=== PATIENT | male | born 1975 | race Two or more races ===

== ENCOUNTER 2017-10-03 21:25 | Emergency (ER) | payer BC, OTHER ==
[~2017-10-03] VITALS: Ht 175.3 cm; Wt 83.9 kg
[2017-10-03 21:35] VITALS: BP 135/86
== END 2017-10-03 22:38 | disposition home or self-care (01) ==
LOC: ER 21:29
DX: J06.9 Acute upper respiratory infection, unspecified (principal); M41.9 Scoliosis, unspecified
CPT/HCPCS: 99281; A4606; Z7610; Z7502

== ENCOUNTER 2018-01-23 09:07 | Outpatient (CLI) | payer BC, OTHER ==
[2018-01-23 09:50] LABS: ALBUMIN 4.1 g/dL (3.4-5.0); BILIRUBIN,TOTAL 0.5 mg/dL (0.2-1.0); CALCIUM, SERUM 9.4 mg/dL (8.5-10.1); CREATININE 1.1 mg/dL (0.6-1.3); POTASSIUM 4.9 mmol/L (3.5-5.1); TOTAL PROTEIN, SERUM 8.5 g/dL (6.4-8.2)
== END 2018-01-23 23:59 | disposition home or self-care (01) ==
LOC: LAB 09:07
DX: E78.5 Hyperlipidemia, unspecified (principal); K21.9 Gastro-esophageal reflux disease without esophagitis
CPT/HCPCS: 36415; 80053-TC; 80061-TC

== ENCOUNTER 2018-09-01 20:21 | Emergency (ER) | payer BC, OTHER ==
[~2018-09-01] VITALS: Ht 175.3 cm; Wt 90.7 kg
--- NOTE | 2018-09-01 20:45 | NUR ---
PT C/O LLQ PAIN X 3 DAYS. -N/V/D, 04/10 PAIN. NONRADIATING, PALPABLE PAIN. PT ON MONITOR IN BED 6. NAD NOTED. WILL CONTINUE TO MONITOR.
[2018-09-01] MEDS ORDERED: HYDROMORPHONE INJ 2 MG/ML DISP.SYRIN IV ONE (21:00)
[2018-09-01] MEDS ORDERED: IV NS 0.9% 1,000 ML BAG IV ONE (21:00)
[2018-09-01] MEDS ORDERED: ONDANSETRON HCL/PF 4 MG/2 ML VIAL IVP ONE (21:00)
[2018-09-01 21:11] LABS: BASOPHILS # (AUTO) 0.1 /CMM (0.0-0.2); BASOPHILS % (AUTO) 0.6 % (0.0-2.0); EOSINOPHILS % (AUTO) 3.7 % (0.0-6.0); HEMATOCRIT 43 % (39-51); HEMOGLOBIN 14.4 g/dL (13.5-17.5); LYMPHOCYTES # (AUTO) 3.1 /CMM (0.8-4.8); LYMPHOCYTES % (AUTO) 26.8 % (20.0-44.0); MEAN CORPUSCULAR HGB CONC 34 g/dl (31.0-36.0); MEAN CORPUSCULAR VOLUME 87 fL (80-96); MONOCYTES # (AUTO) 1.1 /CMM (0.1-1.30); MONOCYTES % (AUTO) 9.3 % (2.0-12.0); NEUTROPHILS # (AUTO) 6.9 /CMM (1.8-8.9); NEUTROPHILS % (AUTO) 59.6 % (43.0-81.0); PLATELET COUNT (AUTO) 284 /CMM (150-450); RED BLOOD CELL COUNT(AUTO) 4.94 MIL/uL (4.5-6.0); WHITE BLOOD COUNT (AUTO) 11.5 K/uL (4.3-11.0)
[2018-09-01] MEDS ORDERED: ONDANSETRON HCL/PF 4 MG/2 ML VIAL ONE (21:13)
[2018-09-01] MEDS ORDERED: HYDROMORPHONE INJ 2 MG/ML DISP.SYRIN ONE (21:14)
[2018-09-01 21:20] LABS: CALCIUM, SERUM 9.5 mg/dL (8.5-10.1); POTASSIUM 3.6 mmol/L (3.5-5.1)
[2018-09-01] MEDS ORDERED: IOHEXOL-300 100 ML VIAL IV ONE (21:23)
[2018-09-01] MEDS ORDERED: IV NS 0.9% 250 ML IV ONE (21:23)
[2018-09-01] MEDS ORDERED: CT SWABBABLE VALVE TRANS SET 1 EA INFUS.SET MC ONE (21:23)
[2018-09-01 21:25] LABS: ALBUMIN 4.1 g/dL (3.4-5.0); BILIRUBIN,DIRECT 0.1 mg/dL (0.0-0.2); BILIRUBIN,TOTAL 0.4 mg/dL (0.2-1.0); TOTAL PROTEIN, SERUM 8.7 g/dL (6.4-8.2)
--- NOTE | 2018-09-01 21:25 | NUR ---
PT TAKEN TO RADIOLOGY FOR CT VIA GOOD
[2018-09-01] MEDS ORDERED: AMOX/CLAVULANATE 875 MG TABLET PO ONE (22:30)
[2018-09-01] MEDS ORDERED: AMOX/CLAVULANATE 875 MG TABLET ONE (22:46)
--- NOTE | 2018-09-01 23:20 | NUR ---
IV removed. Catheter intact and site benign. Pressure and 4x4 applied to site. No bleeding noted.Patient discharged to home in stable condition. Written and verbal after care instructions given. Patient verbalizes understanding of instruction. PT AMBULATORY WITH STEADY GAIT.
[2018-09-01 23:21] VITALS: BP 128/72
== END 2018-09-01 23:22 | disposition home or self-care (01) ==
LOC: ER 20:23
DX: K57.32 Diverticulitis of large intestine without perforation or abscess without bleeding (principal); M41.9 Scoliosis, unspecified
CPT/HCPCS: 36415; 80048-TC; 80076-TC; 83690-TC; 85025-TC; 85730-TC; J1170; J2405; J7030; J7050; Q9967

== ENCOUNTER 2018-11-03 08:27 | Outpatient (CLI) | payer BC ==
[2018-11-03 09:23] LABS: ALBUMIN 4.1 g/dL (3.4-5.0); BILIRUBIN,TOTAL 0.4 mg/dL (0.2-1.0); CALCIUM, SERUM 9.3 mg/dL (8.5-10.1); CREATININE 0.9 mg/dL (0.6-1.3); POTASSIUM 3.8 mmol/L (3.5-5.1); TOTAL PROTEIN, SERUM 8.4 g/dL (6.4-8.2)
== END 2018-11-03 23:59 | disposition home or self-care (01) ==
LOC: LAB 08:27
DX: E78.5 Hyperlipidemia, unspecified (principal); R73.9 Hyperglycemia, unspecified
CPT/HCPCS: 36415; 80053-TC; 80061-TC

== ENCOUNTER 2020-05-15 08:04 | Outpatient (CLI) | payer BC ==
[2020-05-15 08:46] LABS: BASOPHILS # (AUTO) 0.1 /CMM (0.0-0.2); EOSINOPHILS % (AUTO) 11.9 % (0.0-6.0); HEMATOCRIT 42 % (39-51); HEMOGLOBIN 13.8 g/dL (13.5-17.5); LYMPHOCYTES # (AUTO) 2.6 /CMM (0.8-4.8); LYMPHOCYTES % (AUTO) 32.5 % (20.0-44.0); MEAN CORPUSCULAR HGB CONC 33 g/dl (31.0-36.0); MEAN CORPUSCULAR VOLUME 87 fL (80-96); MONOCYTES # (AUTO) 0.8 /CMM (0.1-1.30); MONOCYTES % (AUTO) 9.5 % (2.0-12.0); NEUTROPHILS # (AUTO) 3.6 /CMM (1.8-8.9); NEUTROPHILS % (AUTO) 45.1 % (43.0-81.0); PLATELET COUNT (AUTO) 291 /CMM (150-450)
[2020-05-15 09:23] LABS: ALBUMIN 4.2 g/dL (3.4-5.0); BILIRUBIN,TOTAL 0.6 mg/dL (0.2-1.0); CALCIUM, SERUM 9.1 mg/dL (8.5-10.1); POTASSIUM 3.7 mmol/L (3.5-5.1); TOTAL PROTEIN, SERUM 8.4 g/dL (6.4-8.2)
[2020-05-15 09:28] LABS: APPEARANCE,URINE CLEAR (CLEAR); BILIRUBIN,URINE NEGATIVE (NEGATIVE); BLOOD, URINE NEGATIVE Ery/uL (NEGATIVE); COLOR,URINE YELLOW (YELLOW); KETONES,URINE NEGATIVE (NEGATIVE); LEUKOCYTE ESTERASE ,URINE NEGATIVE (NEGATIVE); NITRITE, URINE NEGATIVE (NEGATIVE); PROTEIN,URINE NEGATIVE (NEGATIVE); UGLUCOSE NEGATIVE (NEGATIVE); UROBILINOGEN,URINE 0.2 EU/dL (0.2)
[2020-05-15 09:35] LABS: PROSTATE SPECIFIC ANTIGEN SCR 0.3 ng/mL (0.00-4.00); THYROID STIMULATING HORMONE 1.515 uIU/mL (0.358-3.74)
== END 2020-05-15 23:59 | disposition home or self-care (01) ==
LOC: LAB 08:04
PROVIDERS: ATTEND Family Medicine
DX: E55.9 Vitamin D deficiency, unspecified (principal); E29.1 Testicular hypofunction; R68.82 Decreased libido; G89.29 Other chronic pain; M54.5 Low back pain; R05 Cough; Q63.1 Lobulated, fused and horseshoe kidney; Z79.899 Other long term (current) drug therapy
CPT/HCPCS: 36415; 71046; 80053-TC; 80061-TC; 81000-TC; 82306; 84153-TC; 84403; 84439-TC; 84443-TC; 85025-TC

== ENCOUNTER 2020-05-18 11:13 | Outpatient (CLI) | payer BC | END 2020-05-18 23:59 | disposition home or self-care (01) | LOC: MRI 11:13 | PROVIDERS: ATTEND Family Medicine | DX: M47.817 Spondylosis without myelopathy or radiculopathy, lumbosacral region (principal); M51.27 Other intervertebral disc displacement, lumbosacral region; M48.07 Spinal stenosis, lumbosacral region; M47.814 Spondylosis without myelopathy or radiculopathy, thoracic region | CPT/HCPCS: 72146-TC; 72148-TC ==

== ENCOUNTER 2022-04-22 10:53 | Outpatient (CLI) | payer BC | END 2022-04-22 23:59 | disposition home or self-care (01) | LOC: MRI 10:53 | PROVIDERS: ATTEND Family Medicine | DX: M47.816 Spondylosis without myelopathy or radiculopathy, lumbar region (principal); M51.27 Other intervertebral disc displacement, lumbosacral region; M48.07 Spinal stenosis, lumbosacral region; M48.8X6 Other specified spondylopathies, lumbar region; M51.87 Other intervertebral disc disorders, lumbosacral region; K21.9 Gastro-esophageal reflux disease without esophagitis; R06.02 Shortness of breath | CPT/HCPCS: 71046; 72148-TC ==

== ENCOUNTER 2022-08-16 21:27 | Emergency (ER) | payer BC ==
[~2022-08-16] VITALS: Ht 172.7 cm; Wt 93.0 kg
[2022-08-17 00:19] VITALS: BP 136/69
[2022-08-17] MEDS ORDERED: IBUPROFEN 400 MG TABLET PO ONE (00:30)
[2022-08-17] MEDS ORDERED: IBUPROFEN 400 MG TABLET ONE (00:31)
--- NOTE | 2022-08-17 00:33 | NUR ---
XRAY DONE ON THE KNEE
== END 2022-08-17 01:44 | disposition home or self-care (01) ==
LOC: ER 21:29
DX: S83.91XA Sprain of unspecified site of right knee, initial encounter (principal); X50.1XXA Overexertion from prolonged static or awkward postures, initial encounter; Y93.89 Activity, other specified; Y92.89 Other specified places as the place of occurrence of the external cause; Y99.8 Other external cause status
CPT/HCPCS: 73564-TC